=== PATIENT | male | born 1960 | race African-American/Black ===

== ENCOUNTER 2022-12-06 11:47 | Emergency (ER) | payer MEDICAID ==
[~2022-12-06] VITALS: Ht 172.7 cm; Wt 181.0 kg
[2022-12-06] MEDS ORDERED: ACETAMINOPHEN 325MG TABLET PO ONE (13:00)
[2022-12-06] MEDS ORDERED: IBUPROFEN 400MG TABLET PO ONE (13:00)
[2022-12-06] MEDS ORDERED: MORPHINE SULFATE 4 MG/ML CPJ (NOT FOR IM USE) IV ONE (13:00)
[2022-12-06 14:11] LABS: BASOPHILS % 0.7 % (0.0-2.0); EOSINOPHILS % 0.3 % (0.0-5.0); HEMOGLOBIN. 15.7 g/dL (14.0-18.0); LYMPHOCYTES % 21.4 % (20.0-50.0); MEAN CORPUSCULAR HEMOGLOBIN 27.1 pg (28.0-32.0); MEAN CORPUSCULAR VOLUME 84.6 fL (80.0-94.0); MEAN PLATELET VOLUME 8.6 fl (7.4-10.4); MONOCYTES % 8.5 % (2.0-8.0); NEUTROPHILS % 69.1 % (40.0-76.0); PLATELET 273 x1000/uL (130-400); RED CELL DISTRIBUTION WIDTH 16.5 % (11.6-14.6)
[2022-12-06 14:14] LABS: CLARITY URINE CLEAR (CLEAR); COLOR URINE YELLOW (YELLOW); KETONES URINE NEGATIVE (NEGATIVE); LEUKOCYTE ESTERASE URINE NEGATIVE (NEGATIVE); NITRITE URINE NEGATIVE (NEGATIVE); OCCULT BLOOD URINE NEGATIVE (NEGATIVE); PH URINE 7.5 (4.5-8.0); PROTEIN URINE TRACE (NEGATIVE); SPECIFIC GRAVITY URINE 1.015 (1.005-1.030); UROBILINOGEN URINE 0.2 E.U./dL (0.2-1.0)
[2022-12-06 14:17] LABS: CHLORIDE 103 mEq/L (98-107)
[2022-12-06 21:14] VITALS: BP 133/81
== END 2022-12-06 22:14 | disposition short-term general hospital (02) ==
LOC: EDBD 11:47 → ER 11:47 → CANBEDREQ 16:15 → ER 22:14
DX: M25.552 Pain in left hip (principal); M25.551 Pain in right hip; M79.662 Pain in left lower leg; M79.661 Pain in right lower leg; R26.2 Difficulty in walking, not elsewhere classified; G89.11 Acute pain due to trauma; R29.6 Repeated falls; M45.8 Ankylosing spondylitis sacral and sacrococcygeal region; M51.36 Other intervertebral disc degeneration, lumbar region; I10 Essential (primary) hypertension; I44.4 Left anterior fascicular block
CPT/HCPCS: 36415; 70450; 72128; 72131; 72170; 80053; 81003; 84484; 85025; 93005; 96374; 99285; J2270; Z7610